=== PATIENT | female | born 1960 | race Caucasian/White ===

== ENCOUNTER 2023-06-25 22:17 | Inpatient (IN) | payer MEDICARE, MEDICAID ==
[~2023-06-25] VITALS: Ht 157.5 cm; Wt 81.6 kg
[2023-06-25 22:27] VITALS: O2SAT 99
[2023-06-25] MEDS ORDERED: ONDANSETRON HCL 4MG/2ML INJ IV STA (23:36)
[2023-06-25] MEDS ORDERED: KETOROLAC 30MG/ML VIAL IV STA (23:36)
[2023-06-25] MEDS ORDERED: FAMOTIDINE 20MG/2ML VIAL IV STA (23:36)
[2023-06-25] MEDS ORDERED: SODIUM CHLORIDE 0.9% 1,000 ML IV ONE (23:45)
[2023-06-26 00:01] LABS: CHLORIDE 108 mEq/L (98-107); INDEX HEMOLYSI 4 (1-3); INDEX ICTERIC 1 (1-4); INDEX LIPEMIC 1 (1-3); SODIUM 135 mEq/L (136-145)
[2023-06-26 00:03] LABS: BASOPHILS % 0.2 % (0.0-2.0); EOSINOPHILS % 0.9 % (0.0-5.0); HEMATOCRIT. 41.2 % (36.0-48.0); HEMOGLOBIN. 13.8 g/dL (12.0-16.0); LYMPHOCYTES % 11.5 % (20.0-50.0); MEAN CORPUSCULAR HEMOGLOBIN 27.1 pg (28.0-32.0); MEAN CORPUSCULAR HGB CONC 33.5 g/dL (31.0-37.0); MEAN CORPUSCULAR VOLUME 80.8 fL (81.0-99.0); MEAN PLATELET VOLUME 9.6 fl (7.4-10.4); MONOCYTES % 4.3 % (2.0-8.0); NEUTROPHILS % 83.1 % (40.0-76.0); PLATELET 284 x1000/uL (130-400); RED CELL DISTRIBUTION WIDTH 14.3 % (11.6-14.6); WHITE BLOOD COUNT 14.3 x1000/uL (4.5-11.0)
[2023-06-26 00:04] LABS: CLARITY URINE CLEAR (CLEAR); COLOR URINE YELLOW (YELLOW); GLUCOSE URINE 3+ (NEGATIVE); KETONES URINE TRACE (NEGATIVE); LEUKOCYTE ESTERASE URINE NEGATIVE (NEGATIVE); NITRITE URINE NEGATIVE (NEGATIVE); OCCULT BLOOD URINE NEGATIVE (NEGATIVE); PROTEIN URINE 3+ (NEGATIVE)
[2023-06-26 00:10] LABS: ALANINE AMINOTRANSFERASE 43 IU/L (13-61); ASPARTATE AMINOTRANSFERASE 33 IU/L (15-37); BILIRUBIN TOTAL 0.4 mg/dL (0.1-1.0); CALCIUM 9.3 mg/dL (8.5-10.1); CARBON DIOXIDE 19 mEq/L (21-32); CREATININE 0.6 mg/dL (0.6-1.3); GLUCOSE 298 mg/dL (70-105); PROTEIN TOTAL 8.3 g/dL (6.0-8.3); UREA NITROGEN BLOOD 16 mg/dL (7-21)
[2023-06-26 00:15] LABS: POTASSIUM 4.1 mEq/L (3.5-5.1)
[2023-06-26 00:23] LABS: LACTIC ACID 2.8 mmol/L (0.4-2.0)
[2023-06-26 01:06] LABS: RBC URINE 0-2 /hpf (0-2); SQUAMOUS EPITHELIAL CELL URINE FEW /lpf (RARE/1+); WBC URINE 0-2 /hpf (0-2)
[2023-06-26 01:10] LABS: BACTERIA URINE TRACE
[2023-06-26] MEDS ORDERED: CLONIDINE 0.1MG TABLET PO PRN (05:45)
[2023-06-26] MEDS ORDERED: GUAIFENESIN 200MG/10ML SUGAR FREE UDC PO PRN (05:45)
[2023-06-26] MEDS ORDERED: MAGNESIUM/ALUMINUM HYDROXIDE/SIMETHICONE 30ML UDC PO PRN (05:45)
[2023-06-26] MEDS: SODIUM CHLORIDE 0.9% 1,000 ML IV SCH ×2 (05:45→19:05)
[2023-06-26] MEDS ORDERED: DEXTROSE 50% WATER 50ML SYRINGE IV PRN (05:45)
[2023-06-26] MEDS ORDERED: IPRATROPIUM/ALBUTEROL 0.5-3(2.5)MG/3ML NEB HHN PRN (05:45)
[2023-06-26] MEDS ORDERED: ONDANSETRON HCL 4MG/2ML INJ IV PRN (05:45)
[2023-06-26] MEDS ORDERED: DOCUSATE SODIUM 100MG CAPSULE PO PRN (05:45)
[2023-06-26] MEDS ORDERED: ACETAMINOPHEN 325MG TABLET PO PRN (05:45)
[2023-06-26] MEDS ORDERED: KETOROLAC 15MG/ML VIAL IV PRN (05:45)
[2023-06-26] MEDS ORDERED: VANCOMYCIN 1.25GM PMX (XELLIA) 250 ML IV NR (06:00)
[2023-06-26] MEDS ORDERED: PIPERACILLIN/TAZ 3.375G PREMIX 50 ML IV NR (06:00)
[2023-06-26 08:00] VITALS: BP_SYST 108; BP_SYST 124; BP_DIAS 56; BP_DIAS 60; PULSE 69; PULSE 98; RESP 12; RESP 18; TEMP 98.1; TEMP 98.2
[2023-06-26] MEDS: BLOOD SUGAR DIAGNOSTIC STRIP TEST SCH ×4 (08:03→21:00)
[2023-06-26 08:11] LABS: INDEX HEMOLYSI 1 (1-3)
[2023-06-26 08:21] LABS: CREATINE KINASE 66 IU/L (26-192); TROPONIN I HIGH SENSITIVITY 10 ng/L (<54)
[2023-06-26 08:25] LABS: PHOSPHORUS 4.1 mg/dL (2.5-4.9); T4 FREE 0.79 ng/dL (0.76-1.46)
[2023-06-26] MEDS ORDERED: PANTOPRAZOLE SODIUM 40 MG/VIAL IV SCH (09:00)
[2023-06-26 09:40] LABS: FOLIC ACID (FOLATE) SERUM 14.7 ng/mL (>5.38)
[2023-06-26 12:00] VITALS: BP 99/45; PULSE 73; RESP 18; TEMP 97.8
[2023-06-26] MEDS: PANTOPRAZOLE SODIUM 40 MG/VIAL IV SCH ×2 (12:37→18:07)
[2023-06-26] MEDS: INSULIN LISPRO 100 UNITS/ML SUBCUT SCH ×4 (12:43→21:00)
[2023-06-26 12:54] LABS: *AMPHETAMINES SCREEN URINE NEGATIVE (NEGATIVE); *BARBITURATES SCREEN URINE NEGATIVE (NEGATIVE); *BENZODIAZEPINES SCREEN URINE NEGATIVE (NEGATIVE); *COCAINE SCREEN URINE NEGATIVE (NEGATIVE); CANNABINOID URINE SCREEN NEGATIVE (NEGATIVE); ECSTASY MDMA SCREEN URINE NEGATIVE (NEGATIVE); METHADONE URINE SCREEN NEGATIVE (NEGATIVE); OPIATES URINE SCREEN NEGATIVE (NEGATIVE); PHENCYCLIDINE URINE SCREEN NEGATIVE (NEGATIVE)
[2023-06-26] MEDS ORDERED: PIPERACILLIN/TAZOBACTAM 3.375 G in DEXTROSE 5% WATER 50 ML IV SCH ×2 (14:00→20:00)
[2023-06-26 16:00] VITALS: BP 114/55; PULSE 75; RESP 18; TEMP 98
[2023-06-26] MEDS ORDERED: VANCOMYCIN 750MG PREMIX 150 ML IV SCH (18:00)
[2023-06-26] MEDS ORDERED: VANCOMYCIN 500MG PREMIX 100 ML IV SCH (18:30)
[2023-06-26] MEDS ORDERED: METOCLOPRAMIDE HCL 10MG/2ML VIAL IV SCH (18:30)
[2023-06-26] MEDS ORDERED: POLYETHYLENE GLYCOL 3350 (17GM) 1 DOSE PACK PO SCH (18:30)
[2023-06-26] MEDS ORDERED: DOCUSATE SODIUM 250MG CAPSULE PO SCH (18:30)
[2023-06-26] MEDS ORDERED: VANCOMYCIN 1500MG in DEXTROSE 5% WATER 250ML IV NR (20:00)
[2023-06-26 22:04] LABS: INDEX HEMOLYSI 1 (1-3)
[2023-06-26 22:12] LABS: CREATINE KINASE 61 IU/L (26-192); GAMMA GLUTAMYL TRANSPEPTIDASE 86 IU/L (7-32); TROPONIN I HIGH SENSITIVITY 6 ng/L (<54)
[2023-06-27 08:00] VITALS: BP 112/46; PULSE 64; RESP 20; TEMP 97.5
[2023-06-27 08:42] LABS: ALBUMIN 3.2 g/dL (3.4-5.0); ASPARTATE AMINOTRANSFERASE 20 IU/L (15-37); BASOPHILS % 0.2 % (0.0-2.0); CALCIUM 8.1 mg/dL (8.5-10.1); CARBON DIOXIDE 23 mEq/L (21-32); CHLORIDE 113 mEq/L (98-107); CREATININE 0.6 mg/dL (0.6-1.3); EOSINOPHILS % 4.1 % (0.0-5.0); GLUCOSE 157 mg/dL (70-105); HEMATOCRIT. 36.1 % (36.0-48.0); HEMOGLOBIN. 12.2 g/dL (12.0-16.0); INDEX HEMOLYSI 1 (1-3); INDEX ICTERIC 1 (1-4); INDEX LIPEMIC 1 (1-3); LYMPHOCYTES % 35.4 % (20.0-50.0); MEAN CORPUSCULAR HEMOGLOBIN 27.4 pg (28.0-32.0); MEAN CORPUSCULAR HGB CONC 33.7 g/dL (31.0-37.0); MEAN CORPUSCULAR VOLUME 81.4 fL (81.0-99.0); MEAN PLATELET VOLUME 9.2 fl (7.4-10.4); MONOCYTES % 6.3 % (2.0-8.0); PLATELET 270 x1000/uL (130-400); POTASSIUM 3.9 mEq/L (3.5-5.1); RED BLOOD CELL COUNT 4.44 mill/uL (4.2-5.4); RED CELL DISTRIBUTION WIDTH 14.1 % (11.6-14.6); SODIUM 143 mEq/L (136-145); UREA NITROGEN BLOOD 12 mg/dL (7-21); WHITE BLOOD COUNT 8.4 x1000/uL (4.5-11.0)
[2023-06-27 08:45] LABS: BILIRUBIN TOTAL 0.7 mg/dL (0.1-1.0); PROTEIN TOTAL 6.8 g/dL (6.0-8.3)
[2023-06-27] MEDS ORDERED: ASCORBIC ACID 500 MG TABLET PO SCH (09:00)
[2023-06-27] MEDS ORDERED: FERROUS SULFATE 325MG TABLET PO SCH (09:00)
[2023-06-27] MEDS: PANTOPRAZOLE SODIUM 40 MG/VIAL IV SCH (09:11)
[2023-06-27 09:12] LABS: ALANINE AMINOTRANSFERASE 31 IU/L (13-61)
[2023-06-27] MEDS: SODIUM CHLORIDE 0.9% 1,000 ML IV SCH (09:20)
[2023-06-27] MEDS: INSULIN LISPRO 100 UNITS/ML SUBCUT SCH ×2 (10:05→14:40)
[2023-06-27 12:00] VITALS: BP 140/64; PULSE 68; RESP 20; TEMP 97.9
[2023-06-27] MEDS ORDERED: VANCOMYCIN 750MG PREMIX 150 ML IV SCH (12:00)
[2023-06-27] MEDS ORDERED: ASCO500T20 PO (13:06)
[2023-06-27] MEDS ORDERED: FERR-63 PO (13:06)
[2023-06-27] MEDS ORDERED: WHEA144P PO (13:06)
[2023-06-27] MEDS: BLOOD SUGAR DIAGNOSTIC STRIP TEST SCH ×2 (14:30→15:00)
[2023-06-27 16:00] VITALS: BP 140/64; PULSE 68; RESP 20; TEMP 97.9
== END 2023-06-27 18:30 | disposition home or self-care (01) | DRG 871 ==
LOC: ER 22:17 → SUPCPDRO 06-26 06:27 → 6EST 06-26 07:59
PROVIDERS: ADMIT Internal Medicine; ATTEND Internal Medicine
DX: A41.9 Sepsis, unspecified organism (principal); K29.71 Gastritis, unspecified, with bleeding; E87.1 Hypo-osmolality and hyponatremia; I10 Essential (primary) hypertension; E11.9 Type 2 diabetes mellitus without complications; K76.0 Fatty (change of) liver, not elsewhere classified; R16.0 Hepatomegaly, not elsewhere classified; Z79.4 Long term (current) use of insulin; Z79.84 Long term (current) use of oral hypoglycemic drugs; Z90.710 Acquired absence of both cervix and uterus; A08.4 Viral intestinal infection, unspecified
CPT/HCPCS: 36415; 71045; 74176; 76705; 80053; 80061; 80305; 81003; 82550; 82607; 82728; 82746; 82962; 82977; 83036; 83540; 83550; 83605; 83735; 84100; 84145; 84439; 84443; 84484; 85025; 92610; 93005; 93970; 99285; C9113; J1815; J1885; J2405; J2543; J3370; J3490; J7030; J7060